=== PATIENT | female | born 1975 | race Caucasian/White ===

== ENCOUNTER 2016-08-28 13:25 | Emergency (ER) | payer OTHER ==
[2016-08-28] MEDS ORDERED: KETOROLAC TROMETHAMINE 30 MG/ML 1 ML VIAL ONE (14:02)
[2016-08-28] MEDS ORDERED: ASPIRIN CHEWTAB 81 MG TABLET ONE (14:02)
[2016-08-28 14:15] LABS: ABSOLUTE NEUTROPHIL COUNT 5.3 K/mm3 (1.8-7.7); BASO % 0.4 % (0.2-1.0); EOS # 0.4 (0.0-0.5); EOS % 4.6 % (0.9-2.9); HEMATOCRIT 37.3 % (37.0-47.0); HEMOGLOBIN 12.2 gm/l (12.0-16.0); IMM NEUT% 0.2 % (0-1); LYMPH # 2.2 (1.0-4.8); LYMPH % 26.5 % (15-45); MEAN CELL VOLUME 93.7 fl (81.0-99.0); MEAN CORPUSCULAR HEMOGLOBIN 30.7 pg (27.0-31.0); MEAN CORPUSCULAR HGB CONC 32.7 g/dl (33.0-37.0); MONO # 0.4 (0.0-0.8); MONO % 4.3 % (4-12); PLATELET COUNT 274 K/mm3 (130-400); RED CELL DISTRIBUTION WIDTH 13.2 % (11.5-14.5)
--- NOTE | 2016-08-28 14:57 | RAD ---
CHEST 2 VIEWS HISTORY: Chest pain. Frontal and lateral chest radiographs dated 08/28/2016. COMPARISON: None. FINDINGS: FOCAL AIRSPACE OPACITY: No gross airspace consolidation. PLEURAL EFFUSION: None. CARDIOMEDIASTINAL SILHOUETTE: Nonenlarged. PNEUMOTHORAX: None identified. OSSEOUS STRUCTURES: No grossly destructive lesions. IMPRESSION: No acute cardiopulmonary process noted.
[2016-08-28 15:07] LABS: ALB/GLOB RATIO 1.1 (>1.0); ALBUMIN 3.9 gm/dL (3.5-5.7)
== END 2016-08-28 15:55 | disposition home or self-care (01) ==
LOC: ED 13:25
DX: R07.81 Pleurodynia (principal); M79.603 Pain in arm, unspecified; J45.909 Unspecified asthma, uncomplicated; F17.210 Nicotine dependence, cigarettes, uncomplicated

== ENCOUNTER 2016-08-30 16:02 | Emergency (ER) | payer OTHER ==
[2016-08-30] MEDS ORDERED: ALBUTEROL/IPRATROPIUM 2.5/0.5 MG 3 ML/EACH DOSE ONE (17:10)
== END 2016-08-30 17:37 | disposition home or self-care (01) ==
LOC: ED 16:02
DX: R09.1 Pleurisy (principal); J45.909 Unspecified asthma, uncomplicated; Z87.891 Personal history of nicotine dependence

== ENCOUNTER 2016-11-10 16:58 | Emergency (ER) | payer OTHER ==
[2016-11-10] MEDS ORDERED: KETOROLAC TROMETHAMINE 30 MG/ML 1 ML VIAL ONE (17:45)
[2016-11-10 17:49] LABS: ABSOLUTE NEUTROPHIL COUNT 4.9 K/mm3 (1.8-7.7); BASO # 0.1 K/mm3 (0.0-0.2); BASO % 0.7 % (0.2-1.0); EOS # 0.5 (0.0-0.5); EOS % 6.1 % (0.9-2.9); HEMATOCRIT 36.2 % (37.0-47.0); HEMOGLOBIN 11.9 gm/l (12.0-16.0); IMM NEUT% 0.1 % (0-1); LYMPH # 2.6 (1.0-4.8); MEAN CELL VOLUME 92.1 fl (81.0-99.0); MEAN CORPUSCULAR HEMOGLOBIN 30.3 pg (27.0-31.0); MEAN CORPUSCULAR HGB CONC 32.9 g/dl (33.0-37.0); MEAN PLATELET VOLUME 9.4 fl (7.4-10.4); MONO # 0.4 (0.0-0.8); MONO % 4.7 % (4-12); NEUT % 57.4 % (43-75); PLATELET COUNT 345 K/mm3 (130-400); RED CELL DISTRIBUTION WIDTH 12.9 % (11.5-14.5)
[2016-11-10 18:04] LABS: ALB/GLOB RATIO 1.2 (>1.0); ALBUMIN 3.8 gm/dL (3.5-5.7); CALCIUM 9.1 mg/dL (8.6-10.3)
--- NOTE | 2016-11-10 18:20 | RAD ---
CHEST 2 VIEWS HISTORY: Chest pain x2 months. Frontal and lateral chest radiographs dated 11-25. COMPARISON: 08/28/2016 FINDINGS: FOCAL AIRSPACE OPACITY: No gross airspace consolidation. PLEURAL EFFUSION: None. CARDIOMEDIASTINAL SILHOUETTE: Nonenlarged. PNEUMOTHORAX: None identified. OSSEOUS STRUCTURES: No grossly destructive lesions. UPPER ABDOMEN: Status post cholecystectomy. IMPRESSION: No acute cardiopulmonary process noted.
[2016-11-10 18:23] LABS: TROPONIN I < 0.01 ng/ml (0.0-0.06)
[2016-11-10 18:27] LABS: CKMB ISOENZYME 0.6 ng/ml (0.6-6.3)
[2016-11-10] MEDS ORDERED: DEXAMETHASONE 4 MG TABLET ONE (18:56)
== END 2016-11-10 19:26 | disposition home or self-care (01) ==
LOC: ED 16:58
DX: R07.89 Other chest pain (principal); J45.909 Unspecified asthma, uncomplicated; F17.210 Nicotine dependence, cigarettes, uncomplicated
CPT/HCPCS: 85025; 82553; 80053; 84484; 71020; 99284 ×2; 96374; 93005; A9270; J1885